=== PATIENT | female | born 1945 | race Two or more races ===

== ENCOUNTER 2022-12-30 15:18 | Emergency (ER) | payer SELFPAY ==
[~2022-12-30] VITALS: Ht 149.9 cm; Wt 74.9 kg
[2022-12-30 15:19] VITALS: BP 127/59; RESP 16; O2SAT 94
[2022-12-30 16:03] LABS: Basophils # (auto) 0.1 10 ^3/uL (0-0.2); Basophils % (auto) 0.6 % (0.0-2.0); Eosinophils # (auto) 0.1 10 ^3/uL (0-0.8); Eosinophils % (auto) 1.4 % (0.0-7.0); Hematocrit 38.7 % (36.0-46.0); Hemoglobin 12.8 g/dL (12.2-16.2); Lymphocytes # (auto) 1.3 10 ^3/uL (0.4-5.4); Mean Corpuscular Hemoglobin 30.8 pg (28.0-32.0); Mean Corpuscular Volume 93.3 fL (80.0-100.0); Monocytes # (auto) 0.6 10 ^3/uL (0-1.3); Monocytes % (auto) 6.9 % (0.0-12.0); Neutrophils # (auto) 6.6 10 ^3/uL (1.6-8.6); Neutrophils % (auto) 76.1 % (37.0-80.0); Red Blood Cells 4.15 10^6/uL (4.0-5.20); Red Cell Distribution Width 13.1 % (11.8-14.3); White Blood Cell 8.6 10^3/uL (4.4-10.8)
[2022-12-30 16:18] LABS: Albumin 3.4 g/dL (3.4-5.0); Calcium 8.6 mg/dL (8.5-10.1); Potassium 4.4 mmol/L (3.5-5.1)
[2022-12-30 16:22] LABS: BUN/Creatinine Ratio 16.3 (10.0-20.0); Bilirubin, Total 0.4 mg/dL (0.2-1.0); Total Protein 7.4 g/dL (6.4-8.2)
[2022-12-30 17:23] VITALS: PULSE 65
== END 2022-12-30 18:16 | disposition home or self-care (01) ==
LOC: ER 15:18
DX: R42 Dizziness and giddiness (principal)
CPT/HCPCS: 36415; 70450; 80053; 85025; 93005

== ENCOUNTER 2023-12-20 17:12 | Emergency (ER) | payer MEDICAID ==
[~2023-12-20] VITALS: Ht 157.5 cm; Wt 77.1 kg
[2023-12-20 18:32] VITALS: BP 153/52; PULSE 68; RESP 16; TEMP 98.8; O2SAT 96
[2023-12-20] MEDS: DOCUSATE SOD 100 MG CAP PO ONE (19:05)
[2023-12-20] MEDS ORDERED: CIPR1SUS8 OT (19:36)
== END 2023-12-20 19:44 | disposition home or self-care (01) ==
LOC: ER 17:12
DX: H61.21 Impacted cerumen, right ear (principal); H60.91 Unspecified otitis externa, right ear; Z90.710 Acquired absence of both cervix and uterus
CPT/HCPCS: 69209